=== PATIENT | male | born 1975 | race Caucasian/White ===

== ENCOUNTER 2018-10-05 08:34 | Emergency (ER) | payer MEDICAID, OTHER ==
[~2018-10-05] VITALS: Ht 180.3 cm; Wt 89.0 kg
[2018-10-05 08:37] VITALS: BP 133/83
[2018-10-05] MEDS ORDERED: proparacaine 0.5% ophthalmic drops 15ml LEFTEYE ONE (09:10)
[2018-10-05] MEDS ORDERED: ERYT1OIN6 LEFTEYE (09:11)
== END 2018-10-05 09:21 | disposition home or self-care (01) ==
LOC: ER 08:35
DX: H57.89 Other specified disorders of eye and adnexa (principal); Z98.890 Other specified postprocedural states; Z79.899 Other long term (current) drug therapy
CPT/HCPCS: 99283

== ENCOUNTER 2022-05-20 01:44 | Emergency (ER) | payer MEDICAID ==
[~2022-05-20] VITALS: Ht 180.3 cm; Wt 85.0 kg
[2022-05-20 01:46] VITALS: BP 132/90
[2022-05-20] MEDS ORDERED: fluorescein sod 1mg ophthalmic strip EACHEYE ONE (01:55)
[2022-05-20] MEDS ORDERED: proparacaine 0.5% ophthalmic drops 15ml EACHEYE ONE (01:55)
[2022-05-20] MEDS ORDERED: CIPR2.5D21 LEFTEYE ×3 (02:50→03:06)
== END 2022-05-20 03:03 | disposition home or self-care (01) ==
LOC: ER 01:47
DX: S05.02XA Injury of conjunctiva and corneal abrasion without foreign body, left eye, initial encounter (principal); Z79.899 Other long term (current) drug therapy; X58.XXXA Exposure to other specified factors, initial encounter; Y93.89 Activity, other specified; Y92.89 Other specified places as the place of occurrence of the external cause; Y99.8 Other external cause status
CPT/HCPCS: 99283

== ENCOUNTER 2022-06-13 20:49 | Emergency (ER) | payer MEDICAID ==
[~2022-06-13] VITALS: Ht 180.3 cm; Wt 84.1 kg
[~2022-06-13 20:49] MED LIST: CIPR2.5D21 LEFTEYE
[2022-06-13 21:39] VITALS: BP 164/96
[2022-06-13] MEDS ORDERED: CIPR2.5D21 LEFTEYE (23:21)
[2022-06-13] MEDS ORDERED: proparacaine 0.5% ophthalmic drops 15ml LEFTEYE ONE (23:25)
[2022-06-13] MEDS ORDERED: erythromycin ophthalmic ointment 1gm tube LEFTEYE ONE (23:35)
--- NOTE | 2022-06-13 23:52 | NUR ---
topical applied drops applied by leila
== END 2022-06-13 23:53 | disposition home or self-care (01) ==
LOC: ER 20:50
DX: T15.02XA Foreign body in cornea, left eye, initial encounter (principal); H57.12 Ocular pain, left eye; Z98.890 Other specified postprocedural states; Z79.2 Long term (current) use of antibiotics; X58.XXXA Exposure to other specified factors, initial encounter; Y93.89 Activity, other specified; Y92.89 Other specified places as the place of occurrence of the external cause; Y99.8 Other external cause status
CPT/HCPCS: 65222; 99284